=== PATIENT | female | born 1940 | race Caucasian/White ===

== ENCOUNTER → 2016-12-15 | Outpatient (CLI) | payer MEDICARE ==
[~2016-12-15] MED LIST: ADVAIR 1001 DISK W/D PO; ALREX OU; ALREX5 M1 OP; AXID AR75 MG PO; AXID150 MG PO; BENADRYL PO; BENADRYL25 M1 PO; BISOPROLOL/HCTZ1 TA3 PO; COMBIVENT INH14.7 GM INH; CRESTOR10 MG PO; LIPITOR PO; MEDROL PO; PEPCID AC20 M2 PO; PREDNISONE PO; SPIRIVA18 MCG INH; ZIAC1 TAB 5/6. PO; ZYRTEC10 M2 PO; [UNRECOGNIZED DRUG - CODE]
--- NOTE | ~2016-12-15 | XA230 ---
[facility] A Service of [facility] RADIOLOGY TEXT RESULTS PATIENT: STACEY CRUZ LOCATION: [facility] : 38 UNIT #: [id number] AGE: [address]: Clark Farias MD SEX: F ORDER DR: [id number] [facility] [address] [place], [place] [address] [id number] O MR#: [id number] Acc #: [id number] NAME: STACEY CRUZ : 1940 SEX: F STUDY DATE/TIME: 12/15/2016 12:41 UNIT: [facility] ROOM: STUDY DESCRIPTION: XA FNA Attending Physician: Clark Farias M.D. Referring Physician: Clark Farias M.D. Ordering Physician: Clark Farias M.D. Primary Care Physician: Chu Will M.D. MEDICAL IMAGING REPORT This report is preliminary unless electronic signature is present EXAM Ultrasound thyroid FNA INDICATION This patient was noted to have a left thyroid nodule on a prior thyroid ultrasound from January 06, 2016. She subsequently underwent thyroid FNA in January 2016 which was reportedly indeterminate. She returns for repeat biopsy today. PROCEDURE The risks, benefits, and alternatives to the procedure were explained to the patient, and signed, informed consent was obtained. She was placed supine on the angiographic table and was prepped and draped in the usual sterile fashion. The ultrasound probe was covered with a sterile probe cover and sterile gel was applied. Time-out was performed as per protocol. Skin and subcutaneous tissues were anesthetized with buffered lidocaine and a total of three separate passes were made into the lesion under direct sterile sonographic guidance using 25-gauge needles. Specimens were given to a generation engineering technologist who confirmed an adequate specimen had been obtained. IMPRESSION Technically successful ultrasound guided thyroid FNA as noted above. Three separate passes were made into this patient's left thyroid nodule under direct sonographic guidance. Ultrasound was used during this procedure and permanent images were saved. Dictated by... Alba Cardoso M.D. THIS IS AN ELECTRONICALLY VERIFIED REPORT Alba Cardoso M.D. at 12/16/2016 4:48 PM AFF/clark [facility] A Service of [facility] RADIOLOGY TEXT RESULTS PATIENT: STACEY CRUZ LOCATION: [facility] #: [id number] : 38 UNIT #: [id number] AGE: [address]: Clark Farias MD SEX: F ORDER DR: TD: 12/16/2016 08:54 JOB #: [id number] MEDICAL IMAGING REPORT Page 1 of 1 COPY
== END | disposition home or self-care (01) ==
LOC: CIVR 12-14 13:00
DX: E04.1 Nontoxic single thyroid nodule (principal)
CPT/HCPCS: 76942; 88173